=== PATIENT | female | born 1945 | race Caucasian/White ===

== ENCOUNTER 2016-12-23 22:19 | Emergency (ER) | payer OTHER ==
[~2016-12-23] VITALS: Ht 165.1 cm; Wt 102.7 kg
[2016-12-23 22:46] VITALS: BP 113/51
--- NOTE | 2016-12-23 23:55 | NUR ---
Patient returning to the lobby from XRAY via wheelchair per tech.
--- NOTE | 2016-12-24 00:41 | NUR ---
Patient to bed 02.
--- NOTE | 2016-12-24 00:42 | NUR ---
71Y F BIB C/O FELL ON RT ANKLE TODAY AT 5PM, VERY SWOLLEN, PT DID NOT LOOSE CONSCIOUSNESS 9/10 PAIN . PT DENIES N/V/D; SKIN IS PINK/WARM/DRY; AAOX4 WITH EVEN AND STEADY GAIT; LUNGS CLEAR BL; HR EVEN AND REGULAR; PT DENIES ANY FEVER, CP, SOB, OR COUGH AT THIS TIME; PATIENT STATES PAIN OF 9/10 AT THIS TIME; VSS; PATIENT POSITIONED FOR COMFORT; HOB ELEVATED; BEDRAILS UP X2; BED DOWN. ER MD MADE AWARE OF PT STATUS. HX: NEUROPATHY, CHF, CAD, ASTHMA, O2SAT 95% ROOM AIR AT THE MOMENT, COPD, HTN, HYPERLIPIDEMIA
--- NOTE | 2016-12-24 00:56 | NUR ---
Dr. Lobato evaluating patient at bedside.
[2016-12-24 01:25] VITALS: BP 115/71
== END 2016-12-24 01:25 | disposition home or self-care (01) ==
LOC: MED 22:30
DX: S93.411A Sprain of calcaneofibular ligament of right ankle, initial encounter (principal); Z88.5 Allergy status to narcotic agent; W18.39XA Other fall on same level, initial encounter; Y93.89 Activity, other specified; Y92.89 Other specified places as the place of occurrence of the external cause; Y99.8 Other external cause status
CPT/HCPCS: 73610; 99284

== ENCOUNTER 2022-11-10 10:26 | Emergency (ER) | payer OTHER ==
[~2022-11-10] VITALS: Ht 165.1 cm; Wt 80.3 kg
[~2022-11-10 10:26] MED LIST: EMPA25TA PO; ESOM40EC PO; FOLI1TAB90 PO; INSU300S SC; PREG200C PO; SPIR50TA PO; [UNRECOGNIZED DRUG - CODE] PO; [UNRECOGNIZED DRUG - CODE] PO
--- NOTE | 2022-11-10 10:30 | NUR ---
BIBA BED 6
[2022-11-10 10:31] VITALS: BP 130/71
--- NOTE | 2022-11-10 10:35 | NUR ---
77YO FEMALE PT BIBA HOME C/O L ANKLE AND R ELBOW PAIN X2DAYS. REPORTS MECH FALL WHILE GOING DOWN STAIRS -[id number]. ANKLE PRESENTS W/ MILD BRUISING. ABRASION NOTED IN R ELBOW. BOTH W/O VISIBLE DEFORMITY. DENIES TAKING MEDICATION. NUMBING OR LOSS OF SENSATION. AMB W/ ASSIST. PT AAOX4, HOB POSITIONED PER COMFORT. HX: HTN, DIABETES, ASTHMA, COPD ALLERGIES: MORPHINE
--- NOTE | 2022-11-10 10:37 | NUR ---
77/F BIBA FROM HOME WITH C/O LEFT ANKLE AND FOOT PAIN S/P TRIP AND FALL AT HER DOCTORS OFFICE 2 DAYS AGO. STATES SHE MISSED THE LAST STEP AND "FELL INTO THE WALL" DENIES HEAD OR NECK PAIN, DENIES LOC. SKIN TEAR NOTED TO RIGHT ARM, SWELLING AND TENDERNESS TO LEFT ANKLE.
--- NOTE | 2022-11-10 10:40 | NUR ---
MD NICHOLSON AT BEDSIDE FOR EVALUATION
--- NOTE | 2022-11-10 10:43 | NUR ---
WOUND TO R POSTERIOR ELBOW IRRIGATED WITH BETADINE x NORMAL SALINE SOLUTION. EXPOSED A SMALL SKIN TEAR/ ABRASION. DRESSED WITH 1 NON ADHERENT AND BANDAGED WITH ROLLER GAUZE.
--- NOTE | 2022-11-10 11:00 | NUR ---
XRAY AT BEDSIDE
[2022-11-10] MEDS ORDERED: DOCU-299 PO (11:23)
[2022-11-10] MEDS ORDERED: HYD1C TP (11:23)
[2022-11-10] MEDS ORDERED: ACETAMINOPHEN EXTRA STRENGTH 500 MG TAB PO ONE (11:30)
[2022-11-10] MEDS ORDERED: TRAM-748 PO (11:47)
--- NOTE | 2022-11-10 11:54 | NUR ---
PIERRE WRAP X 1 APPLIED TO L ANKLE.
--- NOTE | 2022-11-10 12:21 | NUR ---
Patient discharged with v/s stable. Written and verbal after care instructions FOR ANKLE SPRAIN AND ANAL FISSURE given and explained. Patient alert, oriented and verbalized understanding of instructions. WHEELCHAIR ASSISTED TO CAR . All questions addressed prior to discharge. ID band removed. Patient advised to follow up with PMD. Rx of COLACE, HYDROCORTISONE AND ULTRAM given. Opportunity to ask questions provided and answered.
[2022-11-10] MEDS ORDERED: ACET-6951 PO (12:25)
== END 2022-11-10 12:21 | disposition home or self-care (01) ==
LOC: MED 10:26
DX: S93.402A Sprain of unspecified ligament of left ankle, initial encounter (principal); K60.2 Anal fissure, unspecified; E11.9 Type 2 diabetes mellitus without complications; J44.9 Chronic obstructive pulmonary disease, unspecified; I10 Essential (primary) hypertension; Z88.5 Allergy status to narcotic agent; Z79.899 Other long term (current) drug therapy; W01.0XXA Fall on same level from slipping, tripping and stumbling without subsequent striking against object, initial encounter; Y93.89 Activity, other specified; Y92.89 Other specified places as the place of occurrence of the external cause; Y99.8 Other external cause status
CPT/HCPCS: 73080; 73610; 73620; 99284; Q0092

== ENCOUNTER 2024-01-09 17:50 | Emergency (ER) | payer OTHER ==
[~2024-01-09] VITALS: Ht 165.1 cm; Wt 71.7 kg
[~2024-01-09 17:50] MED LIST changes: +ACET-6951 PO; +DOCU-299 PO; +HYD1C TP
[2024-01-09 17:55] VITALS: BP 114/77; PULSE 145; RESP 23; TEMP 98.4; O2SAT 97
[2024-01-09] MEDS: NACL 0.9% 1,000 ML IV ONE (18:22)
[2024-01-09 18:51] VITALS: TEMP 98
[2024-01-09 19:11] LABS: BASOPHILS # (AUTO) 0.1 K/uL (0.00-0.22); BASOPHILS % (AUTO) 1.1 % (0.0-2.0); EOSINOPHILS # (AUTO) 0.1 K/uL (0-0.4); HEMOGLOBIN 14.7 g/dL (12.0-16.0); LYMPHOCYTES # (AUTO) 3.2 K/uL (2.5-16.5); LYMPHOCYTES % (AUTO) 39.6 % (20.5-51.1); MEAN CORPUSCULAR HEMOGLOBIN 31 pg (27-31); MEAN CORPUSCULAR HGB CONC 34 g/dL (33-37); MEAN CORPUSCULAR VOLUME 89.7 fL (80-94); MONOCYTES # (AUTO) 1.1 K/uL (0.8-1.0); MONOCYTES % (AUTO) 13.5 % (1.7-9.3); NEUTROPHILS # (AUTO) 3.7 K/uL (1.8-7.7); NEUTROPHILS % (AUTO) 44.8 % (42.2-75.2); PLATELET COUNT (AUTO) 326 K/uL (140-450); RED CELL DISTRIBUTION WIDTH 15.8 % (11.6-13.7); WHITE BLOOD COUNT (AUTO) 8.2 K/uL (4.8-10.8)
[2024-01-09 19:15] LABS: APPEARANCE,URINE CLEAR (CLEAR); BILIRUBIN,URINE NEGATIVE (NEGATIVE); BLOOD, URINE NEGATIVE (NEGATIVE); COLOR,URINE YELLOW (YELLOW); LEUKOCYTE ESTERASE ,URINE NEGATIVE (NEGATIVE); NITRITE, URINE NEGATIVE (NEGATIVE); PROTEIN,URINE NEGATIVE (NEGATIVE); UGLUCOSE 3+ (NEGATIVE); UROBILINOGEN,URINE 0.2 EU/dL (0.2 - 1)
[2024-01-09 19:17] LABS: ANION GAP 11.5 (8-16); CARBON DIOXIDE 29.5 mmol/L (21-32); CHLORIDE 101 mmol/L (98-107); CREATININE 1.4 mg/dL (0.6-1.3); GLUCOSE 102 mg/dL (74-106); SODIUM SERUM 139 mmol/L (136-145); UREA NITROGEN, BLOOD 17 mg/dL (7-18)
[2024-01-09 22:09] VITALS: BP 116/74; PULSE 89; RESP 16; O2SAT 96
== END 2024-01-09 22:22 | disposition home or self-care (01) ==
LOC: MED 17:50
DX: R00.2 Palpitations (principal); R42 Dizziness and giddiness; J44.9 Chronic obstructive pulmonary disease, unspecified; I11.0 Hypertensive heart disease with heart failure; I50.9 Heart failure, unspecified; E11.9 Type 2 diabetes mellitus without complications; Z86.73 Personal history of transient ischemic attack (TIA), and cerebral infarction without residual deficits; Z90.49 Acquired absence of other specified parts of digestive tract; Z90.710 Acquired absence of both cervix and uterus; Z98.890 Other specified postprocedural states; Z79.899 Other long term (current) drug therapy; Z88.5 Allergy status to narcotic agent
CPT/HCPCS: 36415; 71045; 80048; 81003; 83880; 84484; 85025; 93005; 96360; 99285; J7030

== ENCOUNTER 2024-01-17 17:34 | Emergency (ER) | payer OTHER ==
[~2024-01-17] VITALS: Ht 165.1 cm; Wt 73.9 kg
[2024-01-17 17:48] VITALS: BP 122/94; PULSE 72; RESP 18; TEMP 98.8; O2SAT 93
[2024-01-17] MEDS: NEOMYCIN/POLYMYXIN/BACITRACIN 0.9 GM/1 PKT TP STA (18:20)
== END 2024-01-17 19:52 | disposition home or self-care (01) ==
LOC: MED 17:34
DX: S01.01XA Laceration without foreign body of scalp, initial encounter (principal); E11.9 Type 2 diabetes mellitus without complications; I11.0 Hypertensive heart disease with heart failure; I50.9 Heart failure, unspecified; J44.9 Chronic obstructive pulmonary disease, unspecified; Z86.72 Personal history of thrombophlebitis; Z79.899 Other long term (current) drug therapy; Z88.5 Allergy status to narcotic agent; W18.12XA Fall from or off toilet with subsequent striking against object, initial encounter; Y93.89 Activity, other specified; Y92.091 Bathroom in other non-institutional residence as the place of occurrence of the external cause; Y99.8 Other external cause status
CPT/HCPCS: 12001; 70450; 90471; 90715; 99285